=== PATIENT | female | born 1975 | race Caucasian/White ===

== ENCOUNTER 2021-03-16 12:56 | Emergency (ER) | payer BC ==
[~2021-03-16 12:56] MED LIST: COLACE 100MG C100 MG PO; IBUPROFEN600 MG PO; LEXAPRO10 MG PO; NORCO 5-325 TA1 EACH PO; NUVARING VAGIN1 EACH VG; TORADOL 10 MG T10 MG PO; ZOFRAN ODT 4 MG4 MG SL; ZOFRAN8 MG PO
== END 2021-03-16 15:27 | disposition home or self-care (01) ==
LOC: ER1 12:56
DX: R60.0 Localized edema (principal)
CPT/HCPCS: 93971; 99283